=== PATIENT | male | born 1955 | race Caucasian/White ===

== ENCOUNTER 2017-01-28 11:12 | Emergency (ER) | payer BC, OTHER ==
[~2017-01-28] VITALS: Ht 170.2 cm; Wt 74.3 kg
[2017-01-28 11:17] VITALS: TEMP 36.7
--- NOTE | 2017-01-28 11:37 | EMERGENCY ROOM VISIT NOTE ---
History Report prepared by Sara: Yocasta Diop Under the Supervision of: Dr. Wenceslao Figueroa M.D. First contact with patient: 11:25 Chief Complaint: STROKE SYMPTOMS Stated Complaint: LEFT SIDED WEAKNESS/NUMBNESS X 9:40 History of Present Illness The patient is a 61 year old white male with a past medical history of acid reflux who presents to the ED with a cc of resolved left sided arm weakness beginning 2 hours ago at 0940. Pt states that he was doing laundry today and when he took his clothes out of the washer his left arm started tingling and stopped working for about 4-5 minutes. He reports that he was not able to move his arm and felt numbness and pain. Positive slurred speech per the son, numbness in the left ear, and slow thinking. Negative fever, leg weakness, recent falls, trauma. He states that his symptoms are mostly resolved now and he only has some slight tingling in his left hand now. Source of History: patient Onset: 2 hours ago Position: arm (right) Quality: other (weakness) Timing: resolved Associated Symptoms: No fevers Note: Positive slurred speech per the son, tingling in the left hand, numbness in the left ear, and slow thinking. Negative leg weakness, recent falls, trauma. Review of Systems See HPI for pertinent positives and negatives. A total of ten systems were reviewed and were otherwise negative. Past Medical & Surgical Medical Problems: (1) Acid reflux Family History No pertinent family history stated. Social History Smoking Status: Current Every Day Smoker Alcohol Use: heavy Drug Use: none Housing Status: lives with family Occupation Status: employed Current/Historical Medications Scheduled Aspirin (Aspirin), 1 TAB PO DAILY Atorvastatin (Lipitor), 1 TAB PO DAILY Omeprazole (Prilosec), 20 MG PO BID Allergies Coded Allergies: No Known Allergies (Unverified , 06/16/04) Physical Exam Vital Signs Date Time Temp Pulse Resp B/P (MAP) Pulse Ox O2 Delivery O2 Flow Rate FiO2 01/28/17 16:03 68 16 136/86 95 Room Air 01/28/17 14:16 67 16 144/83 95 Room Air 01/28/17 12:38 63 17 133/81 95 Room Air 01/28/17 11:52 76 01/28/17 11:40 96 Room Air 01/28/17 11:17 36.7 66 20 166/97 95 Room Air Physical Exam GENERAL: Awake, alert, well-appearing, NAD HENT: Normocephalic, atraumatic. EYES: Normal conjunctiva. Sclera non-icteric. NECK: Supple. No nuchal rigidity. FROM. RESPIRATORY: CTAB, no rhonchi, wheezing, crackles CARDIAC: RRR, no MRG ABDOMEN: Soft, NTND, BS+ MSK: No chest wall TTP, no LE edema NEURO: GCS 15, CN 2-12 intact, moves all 4s on command, NIH stroke scale 0 SKIN: No rash or jaundice noted. Medical Decision & Procedures ER Provider Diagnostic Interpretation: Radiology results as stated below per my review and radiologist interpretation: CT HEAD WITHOUT CONTRAST (CT) FINDINGS: No intra or extra-axial mass lesions are visualized. There is no CT evidence of acute cortical infarction. There is no evidence of midline shift. There is no acute hemorrhage. No calvarial fractures are visualized. There are minimal white matter hypodensities likely on a small vessel basis. There is no evidence of pathologic ventricular dilatation. There is a child cisterna magna. There is no evidence of acute sinusitis IMPRESSION: No acute intracranial findings Electronically signed by: Lloyd Nayak M.D. 01/28/2017 12:45 PM Dictated Date/Time: 01/28/2017 12:[address] NECK ANGIO WITH CONTRAST Findings: There is a 5 mm right-sided thyroid nodule. The right carotid revealed no evidence of aneurysm and no evidence of dissection. There is no evidence of hemodynamic significant stenosis. The left carotid revealed no evidence of hemodynamic significant stenosis. There is no evidence of aneurysm. There is no evidence of dissection. There is no evidence of hemodynamically significant vertebral stenosis. There is no evidence of vertebral dissection. IMPRESSION: No evidence of hemodynamically significant carotid or vertebral artery stenosis. No evidence of dissection. Electronically signed by: Lloyd Nayak M.D. 01/28/2017 12:54 PM Dictated Date/Time: 01/28/2017 12:[address] HEAD ANGIO WITH CONTRAST CT DOSE: COMPARISON STUDY: No previous studies for comparison. FINDINGS: There are no lesion suspicious for aneurysm. There are no major intracranial branch occlusions. The dural venous sinuses appear patent. There are no pathologically enhancing parenchymal masses. IMPRESSION: Normal study. Electronically signed by: Lloyd Nayak M.D. 01/28/2017 12:50 PM Dictated Date/Time: 01/28/2017 12:48 PM CHEST ONE VIEW PORTABLE FINDINGS: The cardiac and mediastinal contours are normal. There is no evidence of focal pulmonary consolidation. There is no evidence of failure. No pleural effusions are visualized.[ IMPRESSION: No active disease in the chest. Electronically signed by: Lloyd Nayak M.D. 01/28/2017 12:11 PM Dictated Date/Time: 01/28/2017 12:11 PM Laboratory Results 01/28/17 11:35 Red Blood Count 4.98, Mean Corpuscular Volume 94.6, Mean Corpuscular Hemoglobin 32.1, Mean Corpuscular Hemoglobin Concent 34.0, Mean Platelet Volume 10.0, Neutrophils (%) (Auto) 69.4, Lymphocytes (%) (Auto) 21.6, Monocytes (%) (Auto) 7.7, Eosinophils (%) (Auto) 0.7, Basophils (%) (Auto) 0.3, Neutrophils # (Auto) 8.03, Lymphocytes # (Auto) 2.50, Monocytes # (Auto) 0.89, Eosinophils # (Auto) 0.08, Basophils # (Auto) 0.03 01/28/17 11:35 Test 01/28/17 11:26 01/28/17 11:35 01/28/17 14:07 Bedside Glucose 92 mg/dl (70-99) White Blood Count 11.56 K/uL (4.8-10.8) Red Blood Count 4.98 M/uL (4.7-6.1) Hemoglobin 16.0 g/dL (14.0-18.0) Hematocrit 47.1 % (42-52) Mean Corpuscular Volume 94.6 fL (80-100) Mean Corpuscular Hemoglobin 32.1 pg (25-34) Mean Corpuscular Hemoglobin Concent 34.0 g/dl (32-36) Platelet Count 315 K/uL (130-400) Mean Platelet Volume 10.0 fL (7.4-10.4) Neutrophils (%) (Auto) 69.4 % Lymphocytes (%) (Auto) 21.6 % Monocytes (%) (Auto) 7.7 % Eosinophils (%) (Auto) 0.7 % Basophils (%) (Auto) 0.3 % Neutrophils # (Auto) 8.03 K/uL (1.4-6.5) Lymphocytes # (Auto) 2.50 K/uL (1.2-3.4) Monocytes # (Auto) 0.89 K/uL (0.11-0.59) Eosinophils # (Auto) 0.08 K/uL (0-0.5) Basophils # (Auto) 0.03 K/uL (0-0.2) RDW Standard Deviation 46.0 fL (36.4-46.3) RDW Coefficient of Variation 13.2 % (11.5-14.5) Immature Granulocyte % (Auto) 0.3 % Immature Granulocyte # (Auto) 0.03 K/uL (0.00-0.02) Prothrombin Time 10.0 SECONDS (9.0-12.0) Prothromb Time International Ratio 0.9 (0.9-1.1) Activated Partial Thromboplast Time 25.4 SECONDS (21.0-31.0) Partial Thromboplastin Ratio 1.0 Anion Gap 5.0 mmol/L (3-11) Est Creatinine Clear Calc Drug Dose 72.5 ml/min Estimated GFR () 93.7 Estimated GFR (Non- 80.9 BUN/Creatinine Ratio 13.0 (10-20) Calcium Level 9.4 mg/dl (8.5-10.1) Magnesium Level 2.3 mg/dl (1.8-2.4) Total Bilirubin 0.5 mg/dl (0.2-1) Direct Bilirubin 0.1 mg/dl (0-0.2) Aspartate Amino Transf (AST/SGOT) 18 U/L (15-37) Alanine Aminotransferase (ALT/SGPT) 25 U/L (12-78) Alkaline Phosphatase 75 U/L (45-117) Troponin I < 0.015 ng/ml (0-0.045) Total Protein 7.4 gm/dl (6.4-8.2) Albumin 4.2 gm/dl (3.4-5.0) Triglycerides Level 188 mg/dl (0-150) Cholesterol Level 221 mg/dl (0-200) HDL Cholesterol 62 mg/dl LDL Cholesterol, Calculated 121 mg/dl VLDL Cholesterol, Calculated 38 mg/dl Cholesterol/HDL Ratio 3.6 Lipase 215 U/L (73-393) Thyroid Stimulating Hormone (TSH) 0.501 uIu/ml (0.300-4.500) Laboratory results reviewed by me ECG Indication: weakness Rate (beats per minute): 73 Rhythm: sinus rhythm Findings: PVC, other (normal VT and QRS intervals, bigemony 1:1 pattern, T wave flattening and inversion in lead 3 and AVL) ED Course 1125: The patient was evaluated in room C9. A complete history and physical exam was performed. 1256: I reevaluated and updated the patient. 1317: Discussed the patient's case with Dr. Hodges of [facility] [place] The patient will be evaluated for further treatment and disposition. 1332: Upon reexamination, the patient was doing well. I discussed the test results and treatment plan with the patient. The patient will be evaluated for further management. Medical Decision Differential diagnosis includes stroke, TIA, ISCH, metabolic abnormality, hypoglycemia, hyperglycemia, arrhythmia, complicated migraine, seizure. The patient is a 61 year old white male with a past medical history of acid reflux who presents to the ED with a cc of resolved left sided arm weakness beginning 2 hours ago. Patient's story concerning for possible TIA. Patient had a CT noncontrast CT of the head and neck which were both negative and showed no flow limiting stenosis or areas of infarct. Hospitalist was consultation given the concern for TIA and additional workup. Patient did not want to stay his concerns for possible payment issues. Patient did have an MRI of the brain which did show any acute infarct or area of the reversible ischemia. Patient was given drug and alcohol counsellor to smoking cessation as well as the need to follow-up with his PCP and continue take aspirin as well as Lipitor for his likely transient ischemic attack. Patient's of the lab work was fairly unremarkable. Patient was informed of his abnormal EKG with sinus arrhythmia which showed bigeminy. Patient was told that he would benefit from an inpatient stay even if it was brief. The patient currently refused. Given the patient's willingness to follow up as well as return if any worsening symptoms he was permitted to be discharged after being seen by the hospitalist and had a negative MRI. Patient was given strict follow-up, discharge, return cautious. Patient agreed with plan of care. Patient was seen and evaluated by the hospitalist who also agreed with the plan of care. Patient was discharged home. Medication Reconcilliation Current Medication List: was personally reviewed by me Blood Pressure Screening Patient's blood pressure: Elevated blood pressure Blood pressure disposition: Elevated BP felt to be situational Consults Time Called: 1315 Consulting Physician: Dr. Hodges - [facility] [place] Returned Call: 1317 Discussed the patient's case with Dr. Hodges of [facility] [place]. The patient will be evaluated for further treatment and disposition. Impression Primary Impression: TIA (transient ischemic attack) Additional Impressions: Sinus arrhythmia Bigeminy Scribe Attestation The scribe's documentation has been prepared under my direction and personally reviewed by me in its entirety. I confirm that the note above accurately reflects all work, treatment, procedures, and medical decision making performed by me. Departure Information Dispostion Home / Self-Care Prescriptions Aspirin (ASPIRIN) 81 Mg Chw 1 TAB PO DAILY for 90 Days, #90 TAB 3 Refills Prov: Wenceslao Figueroa M.D. 01/28/17 Atorvastatin (Lipitor) 40 Mg Tab 1 TAB PO DAILY for 30 Days, #30 TAB 5 Refills Prov: Wenceslao Figueroa M.D. 01/28/17 Referrals No Doctor, Assigned (PCP) Patient Instructions Atherosclerosis Aspirin, Atorvastatin tablets, ED Smoking Cessation, My [facility], TIA Additional Instructions Please return to the emergency department if you have worsening or recurrent symptoms. Please take her medications as prescribed. Please follow up with her primary care physician within the next several days. There is a 5 mm right-sided thyroid nodule. Please follow up with your PCP for further testing and surveillance. Problem Qualifiers
[2017-01-28 11:40] VITALS: O2SAT 96; Ht 170.2 cm; Wt 74.3 kg
[2017-01-28 11:45] LABS: BASO % 0.3 %; BASO ABS # 0.03 K/uL (0-0.2); COMPLETE YES; EOS % 0.7 %; HEMATOCRIT 47.1 % (42-52); IG% 0.3 %; LYMPH % 21.6 %; MEAN CELL VOLUME 94.6 fL (80-100); MEAN CORPUSCULAR HEMOGLOBIN 32.1 pg (25-34); MONO % 7.7 %; NEUT % 69.4 %; PLATELET COUNT 315 K/uL (130-400); RED BLOOD COUNT 4.98 M/uL (4.7-6.1); WHITE BLOOD COUNT 11.56 K/uL (4.8-10.8)
[2017-01-28] MEDS ORDERED: OPTIRAY 320 IV PRN (11:45)
[2017-01-28] MEDS ORDERED: PRLSR20 PO (11:56)
[2017-01-28 11:57] LABS: INR 0.9 (0.9-1.1)
[2017-01-28 12:08] LABS: ALT/SGPT 25 U/L (12-78); BLOOD UREA NITROGEN 13 mg/dl (7-18); CALCIUM 9.4 mg/dl (8.5-10.1); CARBON DIOXIDE 27 mmol/L (21-32); CHLORIDE 107 mmol/L (98-107); GLUCOSE 94 mg/dl (70-99); MAGNESIUM 2.3 mg/dl (1.8-2.4); POTASSIUM 4.1 mmol/L (3.5-5.1); SODIUM 139 mmol/L (136-145)
--- NOTE | 2017-01-28 12:12 | DIAGNOSTIC IMAGING REPORT ---
CHEST ONE VIEW PORTABLE CLINICAL HISTORY: stroke like symptoms COMPARISON STUDY: No previous studies for comparison. FINDINGS: The cardiac and mediastinal contours are normal. There is no evidence of focal pulmonary consolidation. There is no evidence of failure. No pleural effusions are visualized.[ IMPRESSION: No active disease in the chest. Electronically signed by: Lloyd Nayak M.D. 01/28/2017 12:11 PM Dictated Date/Time: 01/28/2017 12:11 PM
[2017-01-28 12:19] LABS: ALKALINE PHOSPHATASE 75 U/L (45-117); AST/SGOT 18 U/L (15-37); THYROID STIMULATING HORMONE 0.501 uIu/ml (0.300-4.500)
--- NOTE | 2017-01-28 12:46 | DIAGNOSTIC IMAGING REPORT ---
CT HEAD WITHOUT CONTRAST (CT) CLINICAL HISTORY: Episodic left upper extremity weakness and dysarthria. COMPARISON STUDY: No previous studies for comparison. TECHNIQUE: Axial CT of the brain is performed from the vertex to the skull base. IV contrast was not administered for this examination. A dose lowering technique was utilized adhering to the principles of ALARA. CT DOSE: FINDINGS: No intra or extra-axial mass lesions are visualized. There is no CT evidence of acute cortical infarction. There is no evidence of midline shift. There is no acute hemorrhage. No calvarial fractures are visualized. There are minimal white matter hypodensities likely on a small vessel basis. There is no evidence of pathologic ventricular dilatation. There is a child cisterna magna. There is no evidence of acute sinusitis IMPRESSION: No acute intracranial findings Electronically signed by: Lloyd Nayak M.D. 01/28/2017 12:45 PM Dictated Date/Time: 01/28/2017 12:44 PM
--- NOTE | 2017-01-28 12:52 | DIAGNOSTIC IMAGING REPORT ---
CT HEAD ANGIO WITH CONTRAST CLINICAL HISTORY: Episodic left upper extremity weakness and dysarthria TECHNIQUE: CT angiography of the head was performed in a dynamic helical fashion during intravenous administration of 119 cc of Optiray 320. A dose lowering technique was utilized adhering to the principles of ALARA. MIP imaging was performed CT DOSE: COMPARISON STUDY: No previous studies for comparison. FINDINGS: There are no lesion suspicious for aneurysm. There are no major intracranial branch occlusions. The dural venous sinuses appear patent. There are no pathologically enhancing parenchymal masses. IMPRESSION: Normal study. Electronically signed by: Lloyd Nayak M.D. 01/28/2017 12:50 PM Dictated Date/Time: 01/28/2017 12:48 PM
--- NOTE | 2017-01-28 12:55 | DIAGNOSTIC IMAGING REPORT ---
CT NECK ANGIO WITH CONTRAST CLINICAL HISTORY: Episodic left upper extremity weakness and dysarthria COMPARISON STUDY: No previous studies for comparison. TECHNIQUE: CT angiography was performed from the aortic arch to the skull base. MIP imaging was performed. The patient was scanned in a dynamic helical fashion during intravenous administration of 119 cc of Optiray 320. A dose lowering technique was utilized adhering to the principles of ALARA. CT DOSE: 1026.18 mGy.cm Technique: CT angiogram of the carotid and vertebral arteries was obtained using intravenous contrast and 3-D reconstruction. NASCET criteria was utilized. Findings: There is a 5 mm right-sided thyroid nodule. The right carotid revealed no evidence of aneurysm and no evidence of dissection. There is no evidence of hemodynamic significant stenosis. The left carotid revealed no evidence of hemodynamic significant stenosis. There is no evidence of aneurysm. There is no evidence of dissection. There is no evidence of hemodynamically significant vertebral stenosis. There is no evidence of vertebral dissection. IMPRESSION: No evidence of hemodynamically significant carotid or vertebral artery stenosis. No evidence of dissection. Electronically signed by: Lloyd Nayak M.D. 01/28/2017 12:54 PM Dictated Date/Time: 01/28/2017 12:51 PM
[2017-01-28 14:33] LABS: CHOLESTEROL/HDL RATIO 3.6
--- NOTE | 2017-01-28 15:53 | DIAGNOSTIC IMAGING REPORT ---
MRI OF THE BRAIN WITHOUT AND WITH IV CONTRAST CLINICAL HISTORY: left arm weakness, dysarthria COMPARISON STUDY: Head CT performed January 28, 2017 TECHNIQUE: MRI of the brain was performed from the vertex to the skull base utilizing various T1 and T2 weighted sequences. Following the IV administration of 7 mL of Gadavist contrast, additional enhanced images were obtained. FINDINGS: Sagittal T1, axial diffusion, proton density and T2 weighted axial, coronal FLAIR, and pre and post axial T1-weighted images were acquired. These were supplemented with post gadolinium coronal T1 weighted images. No intra or extra-axial mass lesions are visualized. Axial diffusion-weighted images reveal no evidence of acute or subacute infarction. There is no evidence of ventricular dilatation. There is a prominent cisterna magna Proton density T2-weighted and FLAIR images reveal scattered foci of increased T2 signal within the white matter, likely on a small vessel basis. There are no abnormal flow voids. There is no evidence of pathologic enhancement. IMPRESSION: 1. No acute intracranial findings 2. No evidence of intracranial mass 3. No evidence of acute or subacute infarction Electronically signed by: Lloyd Nayak M.D. 01/28/2017 3:51 PM Dictated Date/Time: 01/28/2017 3:48 PM
[2017-01-28 16:03] VITALS: BP 136/86; PULSE 68; O2SAT 95
[2017-01-28] MEDS ORDERED: ASPI81CH2 PO (16:31)
[2017-01-28] MEDS ORDERED: ATOR-24 PO (16:31)
--- NOTE | 2017-01-28 16:31 | Medical Consult ---
Consultation Date of Consultation: Jan 28, 2017. Attending Physician: Reason for Consultation: Left arm weakness and dysarthria History of Present Illness The patient is a 61-year-old male who upon awakening this morning had normal function, but as he was reaching for something with his left arm this morning he noted the entire arm was numb, and reports that as he was trying to make the arm, he couldn't get the arm to function as he wanted. When his son came over to check on him, his son noted that the patient was having some slurred speech. His son, who is with him in the emergency department room, reports that as he made comments to his father, his father seemed to concentrate more on speech and is now normal. The patient has not had any previous occurrence of these types of symptoms. He has in the past noted some numbness and tingling along the ulnar nerve distribution involving the fourth and fifth fingers of the left hand, which is not like his symptoms today which involved the entire hand was then changed to some minor tingling along the thumb, index and middle finger, and is now normal. The difficulty with slurred speech was significantly the new process for him today. He reports to me at this time that he feels 100% normal, and would prefer to be able to be discharged to home to follow-up with any physicians who we recommend for him to see. Past Medical/Surgical History Medical Problems: (1) Bigeminy Status: Acute (2) Sinus arrhythmia Status: Acute (3) TIA (transient ischemic attack) Status: Acute Family History He does report some distant relatives with CVA, but not in the immediate family of parents or siblings. Social History Smoking Status: Current Every Day Smoker Smokeless Tobacco Use: No Alcohol Use: he drinks daily, but reports that this is not excessive. Drug Use: none Housing Status: lives with family Occupation Status: employed Allergies Coded Allergies: No Known Allergies (Unverified , 06/16/04) Current Inpatient Medications Current Inpatient Medications Medications (Trade) Dose Ordered Sig/Ramon Route Start Time Stop Time Status Last Admin Dose Admin Ioversol (Optiray 320) 125 ml UD PRN IV 01/28/17 11:45 02/01/17 11:44 Review of Systems The patient denies chest pain, palpitations, shortness of breath, cough, lower extremity swelling, vision change, hearing change, sore throat, fevers, chills, sweats, weight change, fatigue, nausea, vomiting, abdominal pain, pelvic pain, blood in urine or stool, dysuria, urinary frequency or urgency, lightheadedness , dizziness, headache, memory loss, rash, abnormal bruising or bleeding, imbalance, focal or generalized weakness, persistent numbness or tingling in arms or legs, arthralgias or myalgias, back or neck pain, night sweats, or allergy symptoms. The review of systems is otherwise negative other than for that already noted above, and at least 10 systems have been reviewed. Physical Exam Date Time Temp Pulse Resp B/P (MAP) Pulse Ox O2 Delivery O2 Flow Rate FiO2 01/28/17 16:03 68 16 136/86 95 Room Air 01/28/17 14:16 67 16 144/83 95 Room Air 01/28/17 12:38 63 17 133/81 95 Room Air 01/28/17 11:52 76 01/28/17 11:40 96 Room Air 01/28/17 11:17 36.7 66 20 166/97 95 Room Air The patient is awake, well-developed and adequately nourished, alert and oriented 3, normocephalic and atraumatic, lying in bed and in no acute distress. HEENT--PERRL, EOMI, mucous membranes and oropharynx dry. Neck--supple, no JVD or bruits, thyroid normal, trachea midline, no adenopathy. Heart--normal S1 and S2, no extra beats, no murmurs, rubs or gallops. Lungs--clear bilaterally with good air movement, no respiratory distress, no accessory muscle use. Abdomen--normal bowel sounds and soft, nontender and nondistended, no hernias or masses, no organomegaly. Extremities--no cyanosis, clubbing or edema. There are good distal pulses b/l. Dermatologic--normal skin turgor, normal color, warm and dry, no abnormal lymph nodes, no rash. Neurologic--cranial nerves II through XII grossly intact, motor and sensory examination normal. Rheumatologic--normal range of motion, nontender, muscles and joints. Psychiatric--normal affect. Laboratory Results Last 24 Hours Test 01/28/17 11:26 01/28/17 11:35 01/28/17 14:07 Bedside Glucose 92 mg/dl White Blood Count 11.56 K/uL Red Blood Count 4.98 M/uL Hemoglobin 16.0 g/dL Hematocrit 47.1 % Mean Corpuscular Volume 94.6 fL Mean Corpuscular Hemoglobin 32.1 pg Mean Corpuscular Hemoglobin Concent 34.0 g/dl Platelet Count 315 K/uL Mean Platelet Volume 10.0 fL Neutrophils (%) (Auto) 69.4 % Lymphocytes (%) (Auto) 21.6 % Monocytes (%) (Auto) 7.7 % Eosinophils (%) (Auto) 0.7 % Basophils (%) (Auto) 0.3 % Neutrophils # (Auto) 8.03 K/uL Lymphocytes # (Auto) 2.50 K/uL Monocytes # (Auto) 0.89 K/uL Eosinophils # (Auto) 0.08 K/uL Basophils # (Auto) 0.03 K/uL RDW Standard Deviation 46.0 fL RDW Coefficient of Variation 13.2 % Immature Granulocyte % (Auto) 0.3 % Immature Granulocyte # (Auto) 0.03 K/uL Prothrombin Time 10.0 SECONDS Prothromb Time International Ratio 0.9 Activated Partial Thromboplast Time 25.4 SECONDS Partial Thromboplastin Ratio 1.0 Sodium Level 139 mmol/L Potassium Level 4.1 mmol/L Chloride Level 107 mmol/L Carbon Dioxide Level 27 mmol/L Anion Gap 5.0 mmol/L Blood Urea Nitrogen 13 mg/dl Creatinine 1.00 mg/dl Est Creatinine Clear Calc Drug Dose 72.5 ml/min Estimated GFR () 93.7 Estimated GFR (Non- 80.9 BUN/Creatinine Ratio 13.0 Random Glucose 94 mg/dl Calcium Level 9.4 mg/dl Magnesium Level 2.3 mg/dl Total Bilirubin 0.5 mg/dl Direct Bilirubin 0.1 mg/dl Aspartate Amino Transf (AST/SGOT) 18 U/L Alanine Aminotransferase (ALT/SGPT) 25 U/L Alkaline Phosphatase 75 U/L Troponin I < 0.015 ng/ml Total Protein 7.4 gm/dl Albumin 4.2 gm/dl Triglycerides Level 188 mg/dl Cholesterol Level 221 mg/dl HDL Cholesterol 62 mg/dl LDL Cholesterol, Calculated 121 mg/dl VLDL Cholesterol, Calculated 38 mg/dl Cholesterol/HDL Ratio 3.6 Lipase 215 U/L Thyroid Stimulating Hormone (TSH) 0.501 uIu/ml Assessment & Plan Transient Left arm weakness/numbness and dysarthria suggestive of TIA--the patient underwent a workup including a normal CT of the head without contrast, CTA of head and neck, and MRI of the brain combo. A 2-D echocardiogram was ordered, but not able to be completed during that time that patient remained in the emergency department, and will therefore need to be done in the outpatient setting. I discussed with him the advantage of being admitted into the hospital at this point would primarily be to monitor for possible arrhythmia as a cause for contributing factor to his symptoms. His symptoms have completely resolved, and his preference is to return home, have his family watch him closely, and also have arrangements made for follow- up with appropriate physicians. He will need an appointment with PCP and neurologist. The arterial hypercoagulable workup has been ordered, and will need to be followed up in the outpatient setting. The patient was advised to take aspirin 81 mg daily, but did not take aspirin in the hospital today, as he was concerned about the cost. He reports he will take an aspirin when he gets home, and will take 1 daily with breakfast. His blood pressure is normal, heart rate is normal, and oxygenation is good. His risk factors include tobacco use disorder, and I explained to him the necessity of complete cessation. He does drink alcohol on a daily basis, and I had a discussion with his son and the patient, and the patient feels that his use is not excessive. His son did bring up the concern to me for discussion today. His cholesterol was checked today, and his LDL of 121 is higher than his target of less than 70. I would therefore recommend starting him on Lipitor 10 mg by mouth daily, with repeat FLP in 3 months. Both the patient and his son are aware that the patient needs return to the emergency department immediately if these symptoms recur or any new symptoms develop.
== END 2017-01-28 17:01 | disposition home or self-care (01) ==
LOC: C.EDB 11:14 → C.EDC 17:01
DX: R29.898 Other symptoms and signs involving the musculoskeletal system (principal); R20.0 Anesthesia of skin; I49.8 Other specified cardiac arrhythmias; R00.8 Other abnormalities of heart beat; R47.1 Dysarthria and anarthria; K21.9 Gastro-esophageal reflux disease without esophagitis; F17.200 Nicotine dependence, unspecified, uncomplicated; Z82.3 Family history of stroke; Z79.82 Long term (current) use of aspirin; Z79.899 Other long term (current) drug therapy

== ENCOUNTER 2017-02-03 11:21 | Emergency (ER) | payer BC, OTHER ==
[~2017-02-03] VITALS: Ht 170.2 cm; Wt 74.0 kg
[~2017-02-03 11:21] MED LIST: ASPI81CH2 PO; ATOR-24 PO; PRLSR20 PO
[2017-02-03 11:26] VITALS: TEMP 36.6; Ht 170.2 cm; Wt 74.0 kg
[2017-02-03] MEDS ORDERED: ESOM20CA PO (11:50)
[2017-02-03] MEDS ORDERED: SODIUM CHLORIDE 0.9% 1000ML 1,000 ML IV SCH (13:07)
[2017-02-03 13:44] VITALS: O2SAT 95
--- NOTE | 2017-02-03 13:56 | DIAGNOSTIC IMAGING REPORT ---
CHEST ONE VIEW PORTABLE HISTORY: 61 years-old Male acute strokelike symptoms COMPARISON: Chest radiograph 01/28/2017 TECHNIQUE: Portable upright AP view of the chest FINDINGS: Cardiomediastinal and hilar silhouettes are within normal limits. There is no pneumothorax, pleural effusion or focal airspace consolidation. The bones are grossly intact. IMPRESSION: No acute cardiopulmonary process. The above report was generated using voice recognition software. It may contain grammatical, syntax or spelling errors. Electronically signed by: Lewis Zhang M.D. 02/03/2017 1:55 PM Dictated Date/Time: 02/03/2017 1:54 PM
[2017-02-03 15:54] LABS: BASO % 0.4 %; BASO ABS # 0.03 K/uL (0-0.2); COMPLETE YES; EOS % 0.7 %; IG% 0.1 %; LYMPH % 26.6 %; LYMPH ABS # 1.86 K/uL (1.2-3.4); MEAN CELL VOLUME 94.7 fL (80-100); MEAN CORPUSCULAR HEMOGLOBIN 32.1 pg (25-34); MEAN CORPUSCULAR HGB CONC 33.9 g/dl (32-36); MEAN PLATELET VOLUME 10.1 fL (7.4-10.4); MONO % 12.6 %; NEUT % 59.6 %; PLATELET COUNT 289 K/uL (130-400); RED BLOOD COUNT 4.86 M/uL (4.7-6.1); WHITE BLOOD COUNT 6.99 K/uL (4.8-10.8)
[2017-02-03 16:09] LABS: INR 0.9 (0.9-1.1)
[2017-02-03 16:19] LABS: BLOOD UREA NITROGEN 9 mg/dl (7-18); BUN/CREATININE RATIO 9.4 (10-20); CALCIUM 9.4 mg/dl (8.5-10.1); CARBON DIOXIDE 29 mmol/L (21-32); CHLORIDE 107 mmol/L (98-107); CREATININE 0.99 mg/dl (0.60-1.40); GLUCOSE 91 mg/dl (70-99); POTASSIUM 4.1 mmol/L (3.5-5.1); SODIUM 140 mmol/L (136-145)
[2017-02-03] MEDS ORDERED: GADAVIST IV PRN (17:30)
--- NOTE | 2017-02-03 17:31 | DIAGNOSTIC IMAGING REPORT ---
MRI OF THE CERVICAL SPINE WITHOUT CONTRAST CLINICAL HISTORY: Numbness. Visual disturbance. Bilateral upper extremity weakness. COMPARISON: None. TECHNIQUE: Utilizing a 1.5 Gege magnet and dedicated coil, multiplanar, multiecho imaging of the cervical spine was performed without IV contrast. FINDINGS: There is 3 mm of anterolisthesis of C7 on T1. Vertebral body heights are maintained. There is no marrow replacement or marrow edema. Exam is mildly compromised by motion artifact. There is no intracanalicular mass or fluid collection. There is minimal cerebellar tonsillar ectopia with a possible arachnoid cyst or brady cisterna magna within the posterior fossa. C2-C3: The central canal and right neural foramen are patent. There is mild narrowing of the left neural foramen. C3-C4: There is minimal disc bulge. The central canal is patent. There is moderate bilateral neural foraminal stenosis due to uncovertebral projecting facet arthrosis. C4-C5: There is minimal disc bulge. The central canal is patent. There is severe left and moderate right neural foraminal stenosis. C5-C6: There is disc space noted with minimal disc bulge. Central canal is patent. There is severe bilateral neural foraminal stenosis due to facet arthrosis and uncovertebral hypertrophy. C6-C7: The central canal is patent. There is mild narrowing of both neural foramen. C7-T1: The central canal and neural foramen are patent. IMPRESSION: 1. Normal cervical cord signal and caliber although exam mildly compromised by motion artifact. 2. No central canal stenosis. Minimal multilevel disc bulges. 3. Severe multilevel neural foraminal stenosis due to facet arthrosis and uncovertebral hypertrophy. 4. Slight anterolisthesis of C7 on T1. Electronically signed by: Bertin Michel M.D. 02/03/2017 5:29 PM Dictated Date/Time: 02/03/2017 5:20 PM
--- NOTE | 2017-02-03 17:52 | ECHOCARDIOGRAM REPORT ---
*NOTICE TO RECEIVING REPUBLICAN AGENCY This information is strictly Confidential and protected under [place] law. [place] law prohibits you from making any further disclosure of this information unless further disclosure is expressly permitted by the written consent of the person to whom it pertains or is authorized by law. A general authorization for the release of medical or other information is not sufficient for this purpose. Hospital accepts no responsibility if the information is made available to any other person, INCLUDING THE PATIENT. Interpretation Summary * Name: Morteza BENÍTEZ Study Date: 02/03/2017 03:02 PM BP: 143/86 mmHg * Patient Location: [facility] HR: 69 * : 1955 (M/d/yyyy) Gender: Male Height: 67 in * Age: 61 yrs Ethnicity: [place] Weight: 163 lb * Ordering Physician: Lencho Rivas * Referring Physician: Self, Referred * Performed By: Dagoberto Shah RCS * * Reason For Study: Neuro Symptoms, Eval for CSOE * BSA: 1.9 m2 * No cardiac source of emboli noted. * -- Conclusions -- * The interatrial septum is intact with no evidence for an atrial septal defect. * Injection of contrast documented no interatrial shunt. * No cardiac source of emboli noted. * The left ventricle is normal in size. * Ejection Fraction = 60-65%. * The right ventricular systolic function is normal. * The left atrial size is normal. * Right atrial size is normal. * No significant valvular pathology Procedure Details * A complete two-dimensional transthoracic echocardiogram was performed (2D, M-mode, Doppler and color flow Doppler). * A saline contrast injection was performed to assess for cardiac shunting. * The injection was performed through an intravenous line in the left arm. * The attending nurse who injected the saline contrast was Dagoberto Jensen RN. * A total of 20 cc of agitated saline was given. Left Ventricle * The left ventricle is normal in size. * There is normal left ventricular wall thickness. * Ejection Fraction = 60-65%. * Left ventricular systolic function is normal. * The left ventricular wall motion is normal. Right Ventricle * The right ventricle is normal size. * The right ventricular systolic function is normal. Atria * The left atrial size is normal. * Right atrial size is normal. * The interatrial septum is intact with no evidence for an atrial septal defect. * Injection of contrast documented no interatrial shunt. Mitral Valve * The mitral valve anatomy is normal. * Significant mitral regurgitation is absent. Tricuspid Valve * The tricuspid valve anatomy is normal. * Significant tricuspid regurgitation is absent. Aortic Valve * The aortic valve is not well visualized. * Aortic stenosis is absent. * There is no significant aortic regurgitation. Pulmonic Valve * The pulmonic valve is not well visualized. * There is no significant pulmonary regurgitation. Great Vessels * The aortic root and proximal ascending aorta are normal sized. Pericardium/Pleural * There is no pericardial effusion. MMode 2D Measurements and Calculations IVSd 0.96 cm IVSs 1.2 cm LVIDd 4.4 cm LVIDs 2.7 cm LVPWd 10 cm LVPWs 1.3 cm IVS/LVPW 0.96 FS 39.4 % EDV(Teich) 90.0 ml ESV(Teich) 26.9 ml EF(Teich) 70.1 % EDV(cubed) 88.0 ml ESV(cubed) 19.6 ml EF(cubed) 77.7 % % IVS thick 28.6 % % LVPW thick 28.3 % LV mass(C)d 145.9 grams LV mass(C)dI 78.7 grams/m\S\2 LV mass(C)s 101.8 grams LV mass(C)sI 54.9 grams/m\S\2 CO(Teich) 3.7 l/min CI(Teich) 2.0 l/min/m\S\2 SV(Teich) 63.1 ml SI(Teich) 34.0 ml/m\S\2 CO(cubed) 4.0 l/min CI(cubed) 2.2 l/min/m\S\2 SV(cubed) 68.4 ml SI(cubed) 36.9 ml/m\S\2 Ao root diam 3.5 cm Ao root area 9.7 cm\S\2 ACS 1.7 cm LA dimension 3.4 cm asc Aorta Diam 3.3 cm LA/Ao 0.97 LVAd ap4 35.0 cm\S\2 LVLd ap4 9.0 cm EDV(MOD-sp4) 113.0 ml LVAs ap4 19.4 cm\S\2 LVLs ap4 7.6 cm ESV(MOD-sp4) 41.0 ml EF(MOD-sp4) 63.7 % LVAd ap2 38.1 cm\S\2 LVLd ap2 9.4 cm EDV(MOD-sp2) 127.0 ml LVAs ap2 19.2 cm\S\2 LVLs ap2 7.2 cm ESV(MOD-sp2) 45.0 ml EF(MOD-sp2) 64.6 % CO(MOD-sp4) 4.2 l/min CI(MOD-sp4) 2.3 l/min/m\S\2 SV(MOD-sp4) 72.0 ml SI(MOD-sp4) 38.8 ml/m\S\2 CO(MOD-sp2) 4.8 l/min CI(MOD-sp2) 2.6 l/min/m\S\2 SV(MOD-sp2) 82.0 ml SI(MOD-sp2) 44.2 ml/m\S\2 Doppler Measurements and Calculations MV E max ponce 71.1 cm/sec MV A max ponce 76.5 cm/sec MV E/A 0.93 MV P1/2t max ponce 88.7 cm/sec MV P1/2t 47.8 msec MVA(P1/2t) 4.6 cm\S\2 MV dec slope 543.8 cm/sec\S\2 MV dec time 0.17 sec Ao V2 max 144.4 cm/sec Ao max PG 8.3 mmHg Ao max PG (full) 2.4 mmHg LV V1 max PG 5.9 mmHg LV V1 max 121.9 cm/sec PA V2 max 117.4 cm/sec PA max PG 5.5 mmHg TR max ponce 211.1 cm/sec
--- NOTE | 2017-02-03 17:53 | DIAGNOSTIC IMAGING REPORT ---
MRI OF THE BRAIN WITHOUT AND WITH IV CONTRAST CLINICAL HISTORY: Dizziness. Lightheadedness. Bilateral upper extremity weakness. COMPARISON STUDY: MRI the brain and head CT January 28, 2017. TECHNIQUE: Utilizing a 1.5 Gege magnet and dedicated coil, multiplanar, multiecho imaging of the brain was performed pre and postcontrast administration. IV administration of 7 mL of Gadavist contrast was uneventful. FINDINGS: There are no areas of restricted diffusion. No acute intracranial hemorrhage, midline shift or mass effect is present. Brain volume is normal for age. Ventricular system is unremarkable. Basilar cisterns are patent. There are no extra-axial collections. There is no intracranial pathologic enhancement. There is a prominent brady cisterna magna versus arachnoid cyst. This is unchanged. A few punctate foci of signal abnormality are noted. These are unchanged. Orbits are unremarkable. Calvarium is intact. IMPRESSION: 1. No acute intracranial findings. 2. Minimal small vessel disease. 3. No enhancing intracranial mass or pathologic enhancement. Electronically signed by: Bertin Michel M.D. 02/03/2017 5:52 PM Dictated Date/Time: 02/03/2017 5:47 PM
--- NOTE | 2017-02-03 18:47 | EMERGENCY ROOM VISIT NOTE ---
History Report prepared by Sara: Chelsea Mcclendon Under the Supervision of: Dr. Lencho Rivas M.D. First contact with patient: 12:36 Chief Complaint: NEURO SYMPTOMS Stated Complaint: WEAKNESS IN BOTH ARMS, TONGUE NUMB Nursing Triage Summary: triage note: Pt reports he was seen in ED on Monday. pt reports today "i just don't feel right." pt states "it is heavy to breathe and i feel lightheaded and all over weakened. " History of Present Illness The patient is a 61 year old male who presents to the Emergency Room with complaints of weakness in his arms bilaterally starting 2 hours prior to arrival. The patient also states that today he felt light-headed, and that both of his arms were weak, but he was still able to move them. He also noticed that his tongue felt numb and tingled, and states that his hands were weak and shaking. The patient also reports having dry mouth after he noticed his tongue was numb. He called his son who was able to get him today. The patient reports that he has also felt groggy and that his vision has diminished beginning 6 days ago. He stated that his thinking was not altered and the problem with his vision was with his far vision. His near vision was unremarkable. Regarding his visit 6 days ago, he states that he did not actually have slurred speech. He states his son had said this in triage in order to get him seen sooner. The patient denies having any fevers or headaches. He states that he has a history of degenerative disc disease in his cervical spine. He reports that he is seeing Dr. Schmidt on March 20 for his neurologic symptoms. Currently his symptoms are resolved other than the grogginess that started on Monday. He states the numbness in his tongue only lasted a few minutes. He also states that the weakness in his arms were only a few minutes and that the strength is returning to normal. Source of History: patient Onset: 2 hours prior to arrival Position: arm (bilateral) Symptom Intensity: moderate Quality: other (weakness ) Timing: resolved Associated Symptoms: No fevers, No headache Note: additional symptoms: numb tongue, shaky hands, grogginess, changes in vision Review of Systems See HPI for pertinent positives & negatives. A total of 10 systems reviewed and were otherwise negative. Past Medical & Surgical Medical Problems: (1) Acid reflux Family History No pertinent family history stated. Social History Smoking Status: Never Smoker Alcohol Use: heavy Drug Use: none Housing Status: lives with family Occupation Status: employed Current/Historical Medications Scheduled Aspirin (Aspirin), 1 TAB PO DAILY Omeprazole (Prilosec), 20 MG PO BID Scheduled PRN Esomeprazole Magnesium (Nexium), 20 MG PO DAILY PRN for PRN Allergies Coded Allergies: Meperidine (Unverified Allergy, Unknown, NAUSEA, VOMITING, 02/03/17) Physical Exam Vital Signs Date Time Temp Pulse Resp B/P (MAP) Pulse Ox O2 Delivery O2 Flow Rate FiO2 02/03/17 18:18 69 18 147/75 94 Room Air 02/03/17 16:06 84 18 113/61 95 Room Air 02/03/17 13:44 95 Room Air 02/03/17 13:40 69 18 143/86 95 Room Air 02/03/17 11:26 36.6 72 18 161/86 94 Room Air Physical Exam Constitutional: Vital signs reviewed. Eyes: Pupils are equal round reactive to light. Conjunctiva are noninjected. ENT: Pharynx is clear without erythema or exudate. Mucous membranes are moist. Neck supple without meningeal signs. Respiratory: Clear to auscultation bilaterally. Breath sounds are equal bilaterally. Cardiovascular: Regular rate and rhythm. No rubs or gallops. GI: Soft, nondistended and nontender. Bowel sounds are present. Musculoskeletal: No peripheral edema. No lower extremity tenderness. Integumentary: No cyanosis. Neurological: The patient is awake and alert. Cranial nerves II-XII are intact. Motor is 5 out of 5 all extremities. Sensation is intact to light touch all extremities. Normal speech. No pronator drift. DTR's are intact bilaterally. Psychiatric: Normal affect. Medical Decision & Procedures ER Provider Diagnostic Interpretation: X-ray results as stated below per interpretation by me and the radiologist: CHEST ONE VIEW PORTABLE HISTORY: 61 years-old Male acute strokelike symptoms COMPARISON: Chest radiograph 01/28/2017 TECHNIQUE: Portable upright AP view of the chest FINDINGS: Cardiomediastinal and hilar silhouettes are within normal limits. There is no pneumothorax, pleural effusion or focal airspace consolidation. The bones are grossly intact. IMPRESSION: No acute cardiopulmonary process. The above report was generated using voice recognition software. It may contain grammatical, syntax or spelling errors. Electronically signed by: Lewis Zhang M.D. 02/03/2017 1:55 PM Dictated Date/Time: 02/03/2017 1:54 PM Radiology results as stated below per my review and the radiologist's interpretation: MRI OF THE BRAIN WITHOUT AND WITH IV CONTRAST CLINICAL HISTORY: Dizziness. Lightheadedness. Bilateral upper extremity weakness. COMPARISON STUDY: MRI the brain and head CT January 28, 2017. TECHNIQUE: Utilizing a 1.5 Gege magnet and dedicated coil, multiplanar, multiecho imaging of the brain was performed pre and postcontrast administration. IV administration of 7 mL of Gadavist contrast was uneventful. FINDINGS: There are no areas of restricted diffusion. No acute intracranial hemorrhage, midline shift or mass effect is present. Brain volume is normal for age. Ventricular system is unremarkable. Basilar cisterns are patent. There are no extra-axial collections. There is no intracranial pathologic enhancement. There is a prominent brady cisterna magna versus arachnoid cyst. This is unchanged. A few punctate foci of signal abnormality are noted. These are unchanged. Orbits are unremarkable. Calvarium is intact. IMPRESSION: 1. No acute intracranial findings. 2. Minimal small vessel disease. 3. No enhancing intracranial mass or pathologic enhancement. Electronically signed by: Bertin Michel M.D. 02/03/2017 5:52 PM Dictated Date/Time: 02/03/2017 5:47 PM MRI OF THE CERVICAL SPINE WITHOUT CONTRAST CLINICAL HISTORY: Numbness. Visual disturbance. Bilateral upper extremity weakness. COMPARISON: None. TECHNIQUE: Utilizing a 1.5 Gege magnet and dedicated coil, multiplanar, multiecho imaging of the cervical spine was performed without IV contrast. FINDINGS: There is 3 mm of anterolisthesis of C7 on T1. Vertebral body heights are maintained. There is no marrow replacement or marrow edema. Exam is mildly compromised by motion artifact. There is no intracanalicular mass or fluid collection. There is minimal cerebellar tonsillar ectopia with a possible arachnoid cyst or brady cisterna magna within the posterior fossa. C2-C3: The central canal and right neural foramen are patent. There is mild narrowing of the left neural foramen. C3-C4: There is minimal disc bulge. The central canal is patent. There is moderate bilateral neural foraminal stenosis due to uncovertebral projecting facet arthrosis. C4-C5: There is minimal disc bulge. The central canal is patent. There is severe left and moderate right neural foraminal stenosis. C5-C6: There is disc space noted with minimal disc bulge. Central canal is patent. There is severe bilateral neural foraminal stenosis due to facet arthrosis and uncovertebral hypertrophy. C6-C7: The central canal is patent. There is mild narrowing of both neural foramen. C7-T1: The central canal and neural foramen are patent. IMPRESSION: 1. Normal cervical cord signal and caliber although exam mildly compromised by motion artifact. 2. No central canal stenosis. Minimal multilevel disc bulges. 3. Severe multilevel neural foraminal stenosis due to facet arthrosis and uncovertebral hypertrophy. 4. Slight anterolisthesis of C7 on T1. Electronically signed by: Bertin Michel M.D. 02/03/2017 5:29 PM Dictated Date/Time: 02/03/2017 5:20 PM Laboratory Results 02/03/17 15:30 Red Blood Count 4.86, Mean Corpuscular Volume 94.7, Mean Corpuscular Hemoglobin 32.1, Mean Corpuscular Hemoglobin Concent 33.9, Mean Platelet Volume 10.1, Neutrophils (%) (Auto) 59.6, Lymphocytes (%) (Auto) 26.6, Monocytes (%) (Auto) 12.6, Eosinophils (%) (Auto) 0.7, Basophils (%) (Auto) 0.4, Neutrophils # (Auto ) 4.16, Lymphocytes # (Auto) 1.86, Monocytes # (Auto) 0.88, Eosinophils # (Auto ) 0.05, Basophils # (Auto) 0.03 02/03/17 15:30 Test 02/03/17 15:30 02/03/17 16:16 White Blood Count 6.99 K/uL (4.8-10.8) Red Blood Count 4.86 M/uL (4.7-6.1) Hemoglobin 15.6 g/dL (14.0-18.0) Hematocrit 46.0 % (42-52) Mean Corpuscular Volume 94.7 fL (80-100) Mean Corpuscular Hemoglobin 32.1 pg (25-34) Mean Corpuscular Hemoglobin Concent 33.9 g/dl (32-36) Platelet Count 289 K/uL (130-400) Mean Platelet Volume 10.1 fL (7.4-10.4) Neutrophils (%) (Auto) 59.6 % Lymphocytes (%) (Auto) 26.6 % Monocytes (%) (Auto) 12.6 % Eosinophils (%) (Auto) 0.7 % Basophils (%) (Auto) 0.4 % Neutrophils # (Auto) 4.16 K/uL (1.4-6.5) Lymphocytes # (Auto) 1.86 K/uL (1.2-3.4) Monocytes # (Auto) 0.88 K/uL (0.11-0.59) Eosinophils # (Auto) 0.05 K/uL (0-0.5) Basophils # (Auto) 0.03 K/uL (0-0.2) RDW Standard Deviation 45.1 fL (36.4-46.3) RDW Coefficient of Variation 13.1 % (11.5-14.5) Immature Granulocyte % (Auto) 0.1 % Immature Granulocyte # (Auto) 0.01 K/uL (0.00-0.02) Prothrombin Time 10.0 SECONDS (9.0-12.0) Prothromb Time International Ratio 0.9 (0.9-1.1) Activated Partial Thromboplast Time 26.1 SECONDS (21.0-31.0) Partial Thromboplastin Ratio 1.0 Anion Gap 4.0 mmol/L (3-11) Est Creatinine Clear Calc Drug Dose 73.3 ml/min Estimated GFR () 94.9 Estimated GFR (Non- 81.9 BUN/Creatinine Ratio 9.4 (10-20) Calcium Level 9.4 mg/dl (8.5-10.1) Troponin I < 0.015 ng/ml (0-0.045) Bedside Glucose 83 mg/dl (70-99) Laboratory results as reviewed by me. ECG Indication: weakness Rate (beats per minute): 67 Rhythm: sinus rhythm Findings: PVC, no acute ischemic change ED Course 1250: The patient was evaluated in room C12. A complete history and physical exam was performed. 1303: Dr. Schmidt says that the patient should be brought in and have an echocardiogram and MRI done. 1307: Ordered Sodium Chlorde 1,000 ml @ 50 mls/hr IV. 1313: I talked to the patient about the plan and he would prefer to be admitted here. 1315: I spoke with Dr. Mcdaniel of [facility]. We discussed the patient and his results. The patient will be further evaluated by him here. 1506: The echocardiogram is being done. 1549: The echocardiogram was performed, and I am waiting for the MRI. The patient was refusing the IV initially, but now that we need do the bubble study before the echocardiogram, he agreed to have the IV placed. 1730: Ordered Gadobutrol 7 mmol IV. 1752: I spoke with Dr. Mcdaniel of [facility]. We discussed the patient and his results. Dr. Mcdaniel said that his echocardiogram is unremarkable and is no source of cardiac emboli. 1800: Dr. Schmidt said that if the patient calls Monday they can get him in sooner. Medical Decision This is a 61-year-old male who presents with neurologic symptoms. Differential diagnosis includes TIA, CVA, intracranial mass, metabolic derangement, migraine headache. I did perform a limited focused review of portions of the patient's old chart on the electronic medical record. The patient was here on January 28 for left sided weakness. He also had numbness, slurred speech, slow thinking, and numbness to his left ear. He had a workup here in the ED, and was recommended in-patient stay, which he refused. He had an MRI of his brain which was negative and he was discharged on aspirin and Lipitor. He also had a CT angiography of his neck and head which was unremarkable. I did evaluate the patient as noted above. The patient initially had refused an IV and blood work per the nurse. I did examine the patient. He is neurologically intact at this time. He had bilateral arm weakness and tongue numbness which lasted a few minutes. I did discuss case with Dr. Hercules of neurology. She recommended that the patient be hospitalized for echocardiogram with bubble study and MRI of the brain. I did discuss this with the patient. He refused admission. I did explain to him that we would be able to get these tests done as an inpatient and he would be able to see neurology. He continued to decline admission and asked that we do the testing here. I therefore talked to Dr. Mcdaniel and ordered and echocardiogram with a bubble study. He refused the IV and blood work again and so the echocardiogram had to be stopped and I spoke to him he agreed to the IV and the bubble study was done. Dr. Mcdaniel stated that the echocardiogram was unremarkable. I did order and personally review the patient's 12-lead EKG and chest x-ray as described above. I did order and review the patient's blood work as noted in the electronic medical record. I did order an MRI of the cervical spine and brain. I did review the images myself as well as the radiology report as described above. There is no evidence of acute abnormality in the brain MRI. The cervical spine demonstrates some mild disc disease. I did discuss the test results with the patient and his son. He has no symptoms at this time. I did discuss the case again with Dr. Hercules who felt the patient could go home given his negative workup here. She stated that he can call on Monday to try to get an earlier appointment with her. The patient was agreeable with this plan and discharged in good condition. He did state that he had a slight headache. Perhaps he had an atypical migraine. He was also concerned about Lyme disease although he had no symptoms consistent with Lyme. I did order Lyme test which he will have his doctor follow up with. Medication Reconcilliation Current Medication List: was personally reviewed by me Blood Pressure Screening Patient's blood pressure: Elevated blood pressure Consults Time Called: 1255 Consulting Physician: Dr. Brayan Zavala Returned Call: 1303 Dr. Schmidt says that the patient should be brought in and have an echocardiogram and MRI done. Time Called:1710 Consulting Physician:Dr. Mcdaniel Returned Call: [phone] Additional Comments: I spoke with Dr. Mcdaniel of [facility]. We discussed the patient and his results. Dr. Mcdaniel said that his echocardiogram is unremarkable and is no source of cardiac emboli. Time Called: 1720 Consulting Physician: Dr. Brayan Zavala Returned Call: 1800 Additional Comments: Dr. Schmidt said that if the patient calls Monday they can get him in sooner. Additional Consults: Time Called: 1255 Consulted Physician: Dr. Mcdaniel Returned Call: 1315 Additional Comments: I spoke with Dr. Mcdaniel of [facility]. We discussed the patient and his results. The patient will be further evaluated by him. Impression Primary Impression: Bilateral arm weakness Additional Impression: Numbness of tongue Scribe Attestation The scribe's documentation has been prepared under my direct and personally reviewed by me in its entirety. I confirm that the note above accurately reflects all work, treatment, procedures, and medical decision making performed by me. Departure Information Dispostion Being Evaluated By Hospitalist Referrals Evie Buck D.O. (PCP) Patient Instructions My [facility] Problem Qualifiers
[2017-02-03 19:08] VITALS: BP 107/75; PULSE 77; O2SAT 95
[2017-02-03 19:38] LABS: LYME DISEASE AB IGG NEG (NEG); LYME DISEASE AB IGM NEG (NEG)
== END 2017-02-03 19:08 | disposition home or self-care (01) ==
LOC: C.EDB 11:22 → C.EDC 19:08
DX: M62.81 Muscle weakness (generalized) (principal); R20.2 Paresthesia of skin; K21.9 Gastro-esophageal reflux disease without esophagitis; Z79.82 Long term (current) use of aspirin; Z79.899 Other long term (current) drug therapy; Z88.8 Allergy status to other drugs, medicaments and biological substances